=== PATIENT | male | born 1975 | race Caucasian/White ===

== ENCOUNTER → 2017-02-18 | Outpatient (CLI) | payer OTHER ==
[~2017-02-18] MED LIST: "\\\"PREP SPRAY\\\"-TIN4 OZ"; BENTYL10 MG PO; COLACE100 MG PO; MILK OF MA400 MG/5 M PO; MIRALAX17 GM PO; PERCOCET 5-3251 EACH PO; PRILOSEC10 MG PO; PROTONIX40 MG PO; THERA-VITE W/ B1 TAB PO; ZESTRIL2.5 MG PO; ZOCOR10 MG PO
== END | disposition disaster alternative care site (69) ==
LOC: GLAB 10:50
DX: R10.84 Generalized abdominal pain (principal)